=== PATIENT | female | born 1955 | race African-American/Black ===

== ENCOUNTER → 2017-02-08 | Outpatient (CLI) | payer OTHER ==
[2015-02-21 15:26] VITALS: BP 146/67
--- NOTE | 2017-02-08 15:38 | KCIC ---
Chest Radiograph Two Views 02/08/2017 Clinical Indication: Cough, bronchitis for 2 weeks Comparison: None Findings: Cardiac and mediastinal silhouettes are within normal limits. No pleural effusion, pneumothorax, or focal consolidation. There is a tiny calcified granuloma the right upper lung. IMPRESSION: No acute cardiopulmonary abnormality. Electronically signed by: Kenny Borrero MD (02/08/2017 3:34 PM) [id number]
== END | disposition home or self-care (01) ==
LOC: KCIC 14:20
PROVIDERS: ATTEND Internal Medicine
DX: J40 Bronchitis, not specified as acute or chronic (principal); J84.10 Pulmonary fibrosis, unspecified
CPT/HCPCS: 71020